=== PATIENT | female | born 1955 | race Caucasian/White ===

== ENCOUNTER 2022-06-01 11:44 | Outpatient (CLI) | payer OTHER | END 2022-06-01 11:45 | disposition home or self-care (01) | LOC: CSHMRI 11:44 | PROVIDERS: ATTEND Psychiatry & Neurology Neurology | DX: R41.3 Other amnesia (principal) | CPT/HCPCS: 70551 ==

== ENCOUNTER 2024-03-27 09:23 | Outpatient (CLI) | payer OTHER | END 2024-03-27 09:24 | disposition home or self-care (01) | LOC: CSHSLEEP 09:23 | PROVIDERS: ATTEND Internal Medicine | DX: G47.33 Obstructive sleep apnea (adult) (pediatric) (principal); R53.83 Other fatigue; E66.9 Obesity, unspecified; Z68.41 Body mass index [BMI] 40.0-44.9, adult; R06.83 Snoring; R09.02 Hypoxemia | CPT/HCPCS: 95800 ==